=== PATIENT | female | born 1950 | race Caucasian/White ===

== ENCOUNTER 2021-04-24 09:13 | Emergency (ER) | payer BC, SELFPAY ==
[2021-04-24] VITALS (14 sets, daily range): BP systolic 148–174; BP diastolic 62–79; PULSE 72–85; RESP 16–18; TEMP 36.1; O2SAT 97–100
--- NOTE | 2021-04-24 10:02 | ED.ALLEREA ---
HPI - Allergic Reaction General Chief complaint: Allergic Reaction Stated complaint: I'm having an allergic reaction Time Seen by Provider: 04/24/21 09:20 Source: patient Mode of arrival: ambulatory Limitations: no limitations History of Present Illness HPI narrative: This is a 70 year old female that presents to the ER for allergic reaction. Reports she just finished penicillin for a sinus infection on . Saturday she started to have diffuse rash. Yesterday she started to note swelling of her face. She has been taking Benadryl with little relief. Denies difficulty swallowing or breathing. Related Data Allergies Allergy/AdvReac Type Severity Reaction Status Date / Time Penicillins Allergy Unknown Unknown Verified 04/24/21 09:27 Review of Systems Review of Systems: CONSTITUTIONAL: Denies fever SKIN: Reports rash and itching. All systems reviewed & are unremarkable except as noted in HPI and below PMFSH Past Medical History Medical History (Updated 04/24/21 @ 13:03 by Katarina Keller PA-C) Dietary counseling and surveillance (02/03/19) Elevated blood pressure reading Elevated glucose Essential hypertension Hypothyroidism (acquired) Prediabetes Routine physical examination Screening for breast cancer Screening for colon cancer Screening for diabetes mellitus Screening for lipid disorders Screening for thyroid disorder Skin lesion of face Family History Family History Other Diabetes mellitus Social History Social History Smoking status: Never smoker Alcohol intake: never Exam Narrative: GENERAL: Well-appearing, well-nourished, and in no acute distress. HEAD: Normocephalic, atraumatic. EYES: EOMI. ENT: Nares clear, no rhinorrhea or epistaxis. Mild swelling of the lips and tongue noted. Mucous membranes moist. Oropharynx without tonsillar hypertrophy exudate or other lesions. CHEST: Clear to auscultation. No respiratory distress. No wheezes rales or rhonchi HEART: Regular rate and rhythm. No murmur heard. Normal peripheral pulses. EXTREMITIES: Normal range of motion. No edema. SKIN: Warm, dry. Diffuse red, papular rash noted NEURO: No focal deficits. Alert and oriented x3. PSYCH: Normal mood and affect Course Reevaluation(s) Reevaluation #1: Patient with improvement in facial swelling. Resting comfortably. Vitals stable Date: 04/24/21 Time: 13:01 Vital Signs Vital signs: Vital Signs Blood Pressure 174/79 H 04/24/21 09:23 Pulse Oximetry 100 04/24/21 09:23 Temperature 97 F L 04/24/21 09:24 Pulse Rate 72 04/24/21 10:12 Respiratory Rate 16 04/24/21 10:12 Blood Pressure 155/74 H 04/24/21 10:31 Pulse Oximetry 97 04/24/21 10:45 MDM - Allergic Reaction MDM Narrative Medical decision making narrative: Patient presents to the emergency department for a possible allergic reaction to antibiotic. Had stopped penicillin on and started with diffuse, itchy rash on Saturday. She has been taking Benadryl intermittently with little relief. Yesterday she started to note some facial swelling which prompted her to be seen today. Her lungs are clear. Her vitals are stable. Given dose of steroid and antihistamines in the ED with improvement. She is stable and felt appropriate for further outpatient evaluation. Instructed to follow-up with her primary doctor and will need referral to an chemist biological. She was given warnings to return to the ER Critical Care Time Critical Care Time Critical Care Time: No Discharge Plan Discharge Clinical Impression: Allergic reaction Qualifiers: Encounter type: initial encounter Qualified Code(s): T78.40XA - Allergy, unspecified, initial encounter Patient Disposition: Home, Self-Care Condition: Stable Instructions: General Allergic Reaction (ED) Additional Instructions: Return to the emergency department if you experience fever,
[2021-04-24] MEDS: FAMOTIDINE 20 MG/2 ML VIAL IV PUSH (10:12)
[2021-04-24] MEDS: methylPREDNISolone SOD SUCC 125 MG VIAL IV PUSH (10:12)
[2021-04-24] MEDS: diphenhydrAMINE HCl INJ 50 MG/ML VIAL 25 MG IV PUSH (10:13)
== END 2021-04-24 13:33 | disposition home or self-care (01) ==
PROVIDERS: Emergency Provider Emergency Medicine; PCP Family Medicine
DX: T78.40XA Allergy, unspecified, initial encounter (principal); I10 Essential (primary) hypertension; E03.9 Hypothyroidism, unspecified; R73.03 Prediabetes
CPT/HCPCS: 96374; 96375; 99284; J1200; J2930